=== PATIENT | female | born 1975 | race Caucasian/White ===

== ENCOUNTER 2022-09-03 22:32 | Emergency (ER) | payer BC ==
[~2022-09-03] VITALS: Ht 152.4 cm; Wt 65.0 kg
[2022-09-03 23:16] LABS: COVID AG,FIA SOURCE NASOPHARYNGEAL
[2022-09-03 23:24] LABS: INFLUENZA TYPE A NEGATIVE FOR TYPE A (NEGATIVE); INFLUENZA TYPE B NEGATIVE FOR TYPE B (NEGATIVE)
[2022-09-03] MEDS ORDERED: AMOX1TAB16 PO (23:54)
[2022-09-03] MEDS ORDERED: OFLO5DRO21 AS (23:54)
[2022-09-04] MEDS ORDERED: OFLOXACIN 0.3% 5 ML OTIC SOLUTION AS ONE
[2022-09-04] MEDS ORDERED: AMOX TR/POT CLAV 875 MG/125 MG TABLET PO ONE
[2022-09-04 00:07] VITALS: BP 138/91
[2022-09-04 00:10] LABS: RAPID GROUP A STREP NEGATIVE (NEGATIVE)
== END 2022-09-04 00:10 | disposition home or self-care (01) ==
LOC: EMS 22:36
DX: H66.92 Otitis media, unspecified, left ear (principal); H60.92 Unspecified otitis externa, left ear; Z20.822 Contact with and (suspected) exposure to COVID-19
CPT/HCPCS: 87430; 87804; 99283

== ENCOUNTER 2023-05-11 23:24 | Emergency (ER) | payer BC ==
[~2023-05-11] VITALS: Ht 152.4 cm; Wt 64.0 kg
[~2023-05-11 23:24] MED LIST: AMOX1TAB16 PO; OFLO5DRO4 AS
[2023-05-11 23:34] VITALS: TEMP 98.7
[2023-05-12] MEDS ORDERED: KETOROLAC TROMETHAMINE 60 MG/2 ML VIAL IM ONE (01:15)
[2023-05-12] MEDS ORDERED: METHOCARBAMOL 500 MG TABLET PO ONE (01:15)
[2023-05-12] MEDS ORDERED: IBUP-1492 PO (02:08)
[2023-05-12] MEDS ORDERED: METH-659 PO (02:09)
[2023-05-12 02:20] VITALS: BP 104/55; PULSE 75; RESP 15
== END 2023-05-12 02:21 | disposition home or self-care (01) ==
LOC: EMS 23:24
DX: S29.012A Strain of muscle and tendon of back wall of thorax, initial encounter (principal); S39.012A Strain of muscle, fascia and tendon of lower back, initial encounter; V49.9XXA Car occupant (driver) (passenger) injured in unspecified traffic accident, initial encounter; Y93.89 Activity, other specified; Y92.89 Other specified places as the place of occurrence of the external cause; Y99.8 Other external cause status
CPT/HCPCS: 99283; 96372; J1885